=== PATIENT | male | born 1960 ===

== ENCOUNTER → 2021-10-09 | Day surgery (SDC) | payer OTHER ==
[~2021-10-09] MED LIST: ASPIRIN CHEWABL81 MG PO; CRESTOR20 MG PO; FOLIC ACID1 MG PO; GABAPENTIN600 MG PO; HYDROCODON-ACE1 EAC6 PO; LANTUS SOL100 UNIT/1 SQ; OMEPRAZOLE40 MG PO; SERTRALINE HCL100 MG PO; WELLBUTRIN XL300 M1 PO
== END | disposition home or self-care (01) ==
LOC: OR 06:15
DX: R13.19 Other dysphagia (principal); K22.89 Other specified disease of esophagus; E11.9 Type 2 diabetes mellitus without complications; I10 Essential (primary) hypertension; E78.00 Pure hypercholesterolemia, unspecified; F17.210 Nicotine dependence, cigarettes, uncomplicated; E66.9 Obesity, unspecified; Z68.32 Body mass index [BMI] 32.0-32.9, adult; Z79.82 Long term (current) use of aspirin; Z79.4 Long term (current) use of insulin; Z79.899 Other long term (current) drug therapy; Z20.822 Contact with and (suspected) exposure to COVID-19
CPT/HCPCS: 82962; J2704; J7040; U0002